=== PATIENT | male | born 1950 | race Caucasian/White ===

== ENCOUNTER 2022-10-04 07:37 | Outpatient (CLI) | payer MEDICARE, SELFPAY ==
[2022-10-04 08:36] LABS: Anion Gap 8 mmol/L (8-16); Blood Urea Nitrogen 25 mg/dL (9-20); Carbon Dioxide 28 mmol/L (22-30); Chloride 102 mmol/L (98-107); Estimated Glomerular Filt Rate 40; Glucose 76 mg/dL (65-110); Potassium 3.8 mmol/L (3.4-5.0); Sodium 138 mmol/L (137-145)
[2022-10-04 08:40] LABS: INR 1.3; Prothrombin Time 17.2 Seconds (11.1-14.7)
== END 2022-10-04 07:38 | disposition home or self-care (01) ==
PROVIDERS: Anesthesiology; PCP Nurse Practitioner; Visit Provider Urology
DX: Z01.812 Encounter for preprocedural laboratory examination (principal); R97.20 Elevated prostate specific antigen [PSA]; N18.9 Chronic kidney disease, unspecified; E11.22 Type 2 diabetes mellitus with diabetic chronic kidney disease
CPT/HCPCS: 36415; 80048; 85610; 85730; 87086; 87147; 87181; 87186

== ENCOUNTER 2022-10-10 00:02 | Day surgery (SDC) | payer MEDICARE, SELFPAY ==
--- NOTE | 2022-09-29 14:28 | PC.NURSE ---
Report to the Outpatient Waiting Room, entrance under the green pavilion located off [facility], at time 1000 on date __10/10/22 . Planned Procedure Time: _1200 . Time changes happen often and if your time is changed the preop area will call you the afternoon before. - You and your visitor will be asked to self-screen and do not enter if you have any COVID symptoms. - A mask is optional within the hospital at this time. Patients may have clear liquids (water, carbonated beverages, clear teas, apple juice) until 3 hours prior to surgery with a maximum of 20 ounces. - No food from midnight until time of surgery - Infants may have breast milk until 4 hours before surgery, formula 6 hours prior to surgery. - Children will be allowed to drink immediately following surgery. If applicable, please bring a bottle or sippy cup to assist with drinking. Juice, water, soda, and popsicles are readily available. For infants on formula, please bring formula the day of surgery. Pacifiers are allowed. Take the following medications with a SIP of water the morning of surgery: __AMLODIPINE,LEVOTHYROXINE,METOPROLOL DO NOT STOP ANY OF YOUR OTHER PRESCRIPTION MEDICATIONS PRIOR TO SURGERY ?EXCEPT THE FOLLOWING Medications to discontinue per physician _XARELTO 2 DAYS PRE OP PER DR IRELAND LAST DOSE 10/07/22____ALL VITAMINS/SUPPLEMENTS 3 DAYS PRE OP.LAST DOSE 10/06/22 Please no make-up, nail arabic, hairspray, perfume, deodorant, or body powder the day of surgery. No jewelry (including any body piercings) or valuables the day of surgery, leave them at home. Please take a shower or bath the night before, or the morning of, surgery with an antibacterial soap. Wear comfortable, loose fitting clothing. Children are encouraged to wear pajamas. - Jewelry must be removed prior to entering the operating room. Rings and piercings that are not removed may be cut off. - The hospital will not accept responsibility for valuables. - Please leave all valuables, including medications, at home the day of surgery. If you are going home after surgery, a licensed route driver must drive you home. - NO public transportation without another adult if you receive anesthesia. - We recommend that an adult stay with you for 24 hours following discharge. - We also recommend that you do not drive, make important decision, drink alcoholic beverages, or take any drugs that were not prescribed by your health care provider for at least 24 hours after your discharge time. For Pediatric surgeries, we recommend two adults accompany the child home. Follow any additional instructions given to you from your surgeon. If you or anyone in your household have experienced Covid symptoms in the past week, please notify your surgeon or the nurse liaison at the phone number below for possible testing. Telephone instructions given to __PATIENT AND TROY and asked if any additional questions and then verbalized understanding. Patient advised to call surgeon office or pre surgery nurse liaison [phone] if any additional questions.
[2022-09-29 14:45] VITALS: BMI 25.8
[2022-10-10 06:39] VITALS: BP 136/55; PULSE 49; RESP 18; TEMP 36.1; O2SAT 100
--- NOTE | 2022-10-10 07:21 | P.PNAN_ITS ---
Anes - Initial Pre Proc Eval Procedure: Operation Date: 10/10/22 08:30 Proposed Procedures p Trans Rectal Ultrasound Fusion Guided Prostate Biopsy - Blayne Delcid MD Date/Time: 10/10/22 07:21 Surgeon: Blayne Delcid MD Pre Op Diagnosis: Elevated PSA Patient Data Age: 71 Gender: M Height: 1.8 m Weight: 83.95 kg Allergies Allergy/AdvReac Type Severity Reaction Status Date / Time meperidine [From Demerol] Allergy Unknown Verified 09/29/22 12:09 Penicillins Allergy Unknown Verified 09/29/22 12:09 Home Medications Medication Instructions Recorded Confirmed Type amlodipine 10 mg tablet 10 mg PO DAILY 09/29/22 09/29/22 History cholecalciferol (vitamin D3) 25 25 mcg PO DAILY 09/29/22 09/29/22 History mcg (1,000 unit) tablet cyanocobalamin (vitamin B-12) 1,000 mcg PO DAILY 09/29/22 09/29/22 History 1,000 mcg capsule folic acid 400 mcg tablet 0.4 mg PO DAILY 09/29/22 09/29/22 History insulin aspart U-100 100 unit/mL 0.9 unit subcut 09/29/22 History (3 mL) subcutaneous pen (Novolog FlexPen U-100 Insulin aspart) insulin pump cart,cont inf,BT 09/29/22 09/29/22 History (Omnipod Dash Pods (Gen 4) subcutaneous cartridge) levothyroxine 25 mcg tablet 25 mcg PO DAILY 09/29/22 09/29/22 History metoprolol succinate 25 mg 12.5 mg PO DAILY 09/29/22 09/29/22 History tablet,extended release 24 hr rivaroxaban 20 mg tablet (Xarelto) 20 mg PO QPM 09/29/22 09/29/22 History rosuvastatin 20 mg tablet 20 mg PO HS 09/29/22 09/29/22 History sacubitril 49 mg-valsartan 51 mg 1 tablet PO BID 09/29/22 09/29/22 History tablet (Entresto) silodosin 4 mg capsule 4 mg PO DAILY 09/29/22 09/29/22 History Patient hx anesthesia problems: none Family hx anesthesia problems: none Results Review: All pre-operative results and documents have been reviewed as part of the pre- operative evaluation. [facility] Social History Social History Smoking status: Never smoker Living arrangements: with family Spiritual care concerns: No Anes - Eval Final PreProcedure Day of Procedure 10/10/22 07:21 Patient weight: normal Heart: regular rate and rhythm Lungs: clear to auscultation Airway: Mallampati scale class II Neurological: alert and oriented Last oral intake: >/= 8 hours ASA classification: III Emergent: no Anesthetic plan: proceed Anesthesia type and monitoring: general LMA and standard monitoring Results Review: All pre-operative results and documents have been reviewed as part of the pre- operative evaluation. Informed Consent: The patient's anesthetic plan and its attendant risks and benefits were discussed with the patient/family/POA. Questions were solicited and answers provided to the satisfaction of the patient/family/POA.
--- NOTE | 2022-10-10 07:21 | WPDHPUPDATE1 ---
History and Physical Update Update Date/Time: 10/10/22 07:21 History and Physical has been reviewed, including an updated exam of the patient. There are NO changes in the patient's condition. Risks, benefits, and alternatives have been discussed and questions answered. Patient agrees to proceed with procedure. Proceed with uronav us and prostate biopsy
[2022-10-10] MEDS: LACTATED RINGERS 1,000 ML 30 ML IV CONT (07:25)
[2022-10-10 07:33] LABS: Glucose Point of Care 103 mg/dl (65-105)
[2022-10-10 07:46] LABS: INR 1.1; Prothrombin Time 14.2 Seconds (11.1-14.7)
[2022-10-10 08:04] LABS: Partial Thromboplastin Time 35.2 SECONDS (22.3-36.8)
--- NOTE | 2022-10-10 08:18 | SUR.PREOP ---
ALL PRE OP CHARTING DOCUMENTED UNDER Allison BONE RN. WAS ACTUALLY DOCUMENTED BY Dalila DUCKWORTH RN
--- NOTE | 2022-10-10 09:05 | P.OP_ITS ---
Procedure Note - Detailed Date of Procedure 10/10/22 Pre-op Diagnosis Elevated PSA Post-op Diagnosis Same Procedure Performed Uronav us and prostate biopsy Surgeon Blayne Delcid MD Anesthesia General Description of Procedure Patient is taken to the operative suite correctly identified. Once anesthesia w as obtained was placed in the lateral decubitus position. Transrectal ultrasound was then performed. The MRI image was fused to the ultrasound machine. Three cores were taken from each region of interest. I then did a standard 12 core biopsy. Patient tolerated procedure well without any complications and was taken recovery stable condition. He is to call for path results in a week. This completes dictation. Please send a copy of this op note to my office Estimated Blood Loss 0 Drains No Packing No Pathology Yes Complications No immediate complications Condition Stable Disposition PACU
[2022-10-10 09:08] VITALS: BP 111/54; PULSE 46; RESP 14; O2SAT 100
[2022-10-10 09:15] LABS: Glucose Point of Care 120 mg/dl (65-105)
[2022-10-10 09:40] VITALS: BP 109/56; PULSE 46; RESP 16
[2022-10-10 10:10] VITALS: BP 131/75; PULSE 47; RESP 16
== END 2022-10-10 10:36 | disposition home or self-care (01) ==
PROVIDERS: PCP Nurse Practitioner; Visit Provider Urology
PROC: (CPT 55700; principal; 2022-10-10 08:30)
DX: C61 Malignant neoplasm of prostate (principal); Z79.4 Long term (current) use of insulin; Z79.01 Long term (current) use of anticoagulants; Z96.41 Presence of insulin pump (external) (internal)
CPT/HCPCS: 55700; 76872; 36415; 82948; 85610; 85730; 88342; G0416; J2405; J2704; J3010; J7120